=== PATIENT | female | born 1975 | race Caucasian/White ===

== ENCOUNTER 2020-01-09 21:14 | Observation (INO) | payer OTHER ==
--- NOTE | 2020-01-09 21:48 | ER Document Report ---
ED Medical Screen (RME) - General Chief Complaint: Chest Pain Stated Complaint: CHEST PAINS SOB Time Seen by Provider: 01/09/20 21:23 Mode of Arrival: Ambulatory Information source: Patient Notes: 44-year-old female presented to ED for complaint of chest pain with difficulty breathing worse today. She states she has been sick for about 2 years. She states her red cells and her white cells were very high her platelets were also high she has been going to a doctor and having multiple test in [place] for over a year. He states they are concerned she has autoimmune disease and she was supposed to go to the [facility] before she had a family emergency and ended up coming to [place] about a month ago. She states she is planning to go back on the to [place]. She states she does have a history of kidney stones with hydronephrosis pain management for body pains and muscle spasms she is on Dilaudid 4 mg every 6 hours took the last one about 9 PM fentanyl patches 37.5 mcg changes every 3 days. She states she is got chronic bone and muscle pain. She is also very history of high blood pressure. She has a port due to her multiple illnesses and chronic pain and the possible autoimmune disease. She states she does self care for her port while she is in [place]. She states her home health nurse taught her how to do the home care and taught her how to do the Cathflo treatment for Friday film goes over the end of her Port-A-Cath. She states she did that treatment last week she has a history of migraines but has not had one since I gave her Botox treatments. She states she is a former smoker does not drink or do any drugs. I have greeted and performed a rapid initial assessment of this patient. A comprehensive ED assessment and evaluation of the patient, analysis of test results and completion of medical decision making process will be conducted by an additional ED providers. Physical Exam - Vital signs Vitals: Temp Pulse Resp BP Pulse Ox 98 F 93 16 112/82 99 01/09/20 21:29 01/09/20 21:29 01/09/20 21:29 01/09/20 21:01/09/20 21:29 Course - Vital Signs Vital signs: Temp Pulse Resp BP Pulse Ox 98 F 93 16 112/82 99 01/09/20 21:29 01/09/20 21:29 01/09/20 21:29 01/09/20 21:29 01/09/20 21:29
--- NOTE | 2020-01-09 22:40 | RADIOLOGY REPORT (SQ) ---
EXAM DESCRIPTION: XR CHEST 2 VIEWS COMPLETED DATE/TME: 01/09/2020 21:39 CLINICAL HISTORY: 44 years, Female, chest pain, short of breath COMPARISON: None. NUMBER OF VIEWS: TECHNIQUE: LIMITATIONS: None. FINDINGS: No evidence of pulmonary infiltrate or pleural effusion. The heart and mediastinum are unremarkable. Pulmonary vascularity appears normal. There is a left-sided Port-A-Cath with its tip in the superior vena cava. IMPRESSION: No acute finding. copyright 2010 [employer]- All Rights Reserved
[2020-01-09 23:21] LABS: APPEARANCE,URINE CLEAR; BILIRUBIN,URINE NEGATIVE (NEGATIVE); COLOR,URINE ORANGE; GLUCOSE, URINE NEGATIVE (NEGATIVE); KETONES,URINE NEGATIVE (NEGATIVE); LEUKOCYTE ESTERASE,URINE NEGATIVE (NEGATIVE); NITRITE,URINE POSITIVE (NEGATIVE); PROTEIN,URINE NEGATIVE (NEGATIVE); URINE SPECIFIC GRAVITY 1.021
--- NOTE | 2020-01-09 23:25 | RADIOLOGY REPORT (SQ) ---
EXAM DESCRIPTION: Site: RP: CT ABDOMEN PELVIS WITHOUT IV CONTRAST CLINICAL HISTORY: 44 years Female; Hematuria, flank pain, history of kidney stones; TECHNIQUE: CT of the abdomen and pelvis without contrast. All CT scans at this facility use dose modulation, iterative reconstruction, and/or weight based dosing when appropriate to reduce radiation dose to as low as reasonably achievable. COMPARISON: None. FINDINGS: Abdomen: Stomach: No significant distention or surrounding edema. Liver:No focal lesions. No intrahepatic ductal distention. Gallbladder: Surgically absent Pancreas:Within normal limits Spleen:Within normal limits Right kidney: 3 mm lower pole calculus. No hydronephrosis. No ureteral calculi. Left kidney: 3 mm lower pole calculus. No hydronephrosis. No ureteral calculi. Adrenal glands:Within normal limits Vascular structures:No aortic aneurysm. Pelvis: Small bowel:No significant distention. Appendix: Not reliably identified. No regional edema. Colon:No distention or acute pericolonic edema. No free intraperitoneal fluid or air. Bones: No acute bone findings. Bladder: Unremarkable. No pelvic mass or adenopathy. Note that evaluation of the bowel and solid organs is somewhat limited due to lack of intravenous and oral contrast. IMPRESSION: 1. Bilateral renal calculi. 2. No hydronephrosis or ureteral calculi. 3. Previous cholecystectomy.
--- NOTE | 2020-01-10 00:16 | EKG REPORT ---
SEVERITY:- ABNORMAL ECG - SINUS RHYTHM FIRST DEGREE AV BLOCK : Confirmed by: Carlos Alberto Melissa MD 10-Jan-2020 00:15:43
[2020-01-10 01:49] LABS: ABSOLUTE BASOPHILS # (AUTO) 0.1 10^3/uL (0.0-0.2); ABSOLUTE EOSINOPHILS # (AUTO) 0.3 10^3/uL (0.0-0.6); ABSOLUTE LYMPHOCYTES (AUTO) 3.9 10^3/uL (0.5-4.7); ABSOLUTE MONOCYTES (AUTO) 0.4 10^3/uL (0.1-1.4); ABSOLUTE NEUT (AUTO) 3.1 10^3/uL (1.7-8.2); BASOPHILS % (AUTO) 1.1 % (0-2); EOSINOPHILS % (AUTO) 3.6 % (0-6); HEMATOCRIT 39.6 % (36.0-47.0); HEMOGLOBIN 13.6 g/dL (12.0-15.5); LYMPHOCYTES % (AUTO) 50.2 % (13-45); MEAN CORPUSCULAR HEMOGLOBIN 27.7 pg (27.0-33.4); MEAN CORPUSCULAR HGB CONC 34.3 g/dL (32.0-36.0); MEAN CORPUSCULAR VOLUME 81 fl (80-97); MONOCYTES % (AUTO) 5.2 % (3-13); PLATELET COUNT 357 10^3/uL (150-450); RED BLOOD COUNT 4.89 10^6/uL (3.72-5.28); RED CELL DISTRIBUTION WIDTH 13.1 % (11.5-14.0); SEGMENTED NEUTROPHILS % (AUTO) 39.9 % (42-78); TOTAL CELLS COUNTED % (AUTO) 100 %; WHITE BLOOD COUNT 7.7 10^3/uL (4.0-10.5)
[2020-01-10 02:03] LABS: ALKALINE PHOSPHATASE 75 U/L (38-126); ANION GAP 8 (5-19); ASPARTATE AMINO TRANSFERASE 26 U/L (14-36); BILIRUBIN,DIRECT 0.3 mg/dL (0.0-0.4); BILIRUBIN,TOTAL 0.5 mg/dL (0.2-1.3); BLOOD UREA NITROGEN 15 mg/dL (7-20); CALCIUM 9.7 mg/dL (8.4-10.2); CARBON DIOXIDE 28 mmol/L (22-30); CHLORIDE 101 mmol/L (98-107); GLUCOSE 159 mg/dL (75-110); PHOSPHORUS 4.3 mg/dL (2.5-4.5); POTASSIUM 3.8 mmol/L (3.6-5.0); TOTAL PROTEIN 6.6 g/dL (6.3-8.2)
[2020-01-10 02:14] LABS: NT PRO BNP 365 pg/mL (<125)
[2020-01-10 02:15] LABS: TROPONIN I < 0.012 ng/mL
[2020-01-10 02:17] LABS: PROTHROMBIN TIME 13.4 SEC (11.4-15.4)
[2020-01-10 02:18] LABS: PARTIAL THROMBOPLASTIN TIME 36.3 SEC (23.5-35.8)
--- NOTE | 2020-01-10 03:50 | RADIOLOGY REPORT (SQ) ---
COMPLETED DATE/TME: 01/10/2020 03:00 EXAM: CT chest angiogram with contrast. INDICATION: Chest pain. TECHNIQUE: Contiguous axial CT images of the chest. Intravenous contrast: Present. Protocol: Pulmonary embolus (PE) protocol angiogram. Reformats: MIPs and MPRs created and utilized. DLP 1021 mGy-cm. This exam was performed according to our departmental dose-optimization program, which includes automated exposure control, adjustment of the mA and/or kV according to patient size and/or use of iterative reconstruction technique. Note: LV=left ventricle. RV=right ventricle. COMPARISON: None. FINDINGS: Upper abdomen: Partially imaged. Cholecystectomy Thoracic aorta: Unremarkable. Heart: No right atrial thrombus. RV/LV ratio: Within normal limits. Pulmonary arteries: Suboptimal opacification of the pulmonary arteries. No large central pulmonary embolism detected. Mediastinum: No pathologic sized middle mediastinal lymphadenopathy. Tracheobronchial tree: Unremarkable. Lungs: Lobar consolidation: Negative. Pleural effusion: Negative. Pneumothorax: Negative. Other: Negative. Bones: Unremarkable. IMPRESSION: No large central pulmonary embolism detected. No acute cardiopulmonary abnormality.
--- NOTE | 2020-01-10 05:23 | ER Document Report ---
ED General - General Chief Complaint: Chest Pain Stated Complaint: CHEST PAINS SHORTNESS OF BREATH Time Seen by Provider: 01/09/20 21:23 Mode of Arrival: Ambulatory Notes: 44-year-old female with left chest PowerPort because of chronic decreased p.o. intake patient reports, possible autoimmune disease and hematologic issues that are currently being investigated by multiple specialists presents with shortness of breath and chest pain. Says she had episode several hours prior to arrival during which she had inability to get sufficient air and gasping for breath which was resolved when she presented to ED. Patient denies any prior episodes, exertional chest pain, pleuritic chest pain, PE risk factors, neck pain, trauma, syncope, cough, fever, prior episodes - Related Data Allergies/Adverse Reactions: NSAIDS (Non-Steroidal Anti-Inflamma Allergy (Verified 01/09/20 22:28) tramadol [From Ultram] Allergy (Verified 01/09/20 22:28) Home Medications: flomax, keflex, pyridium, dilaudid, fentanyl patch, baby asa, baclofen,amanatine, restles leg, med, dronabinol,hydrozine, zofranmenatidine,lisinopril/HCTZ,vitamin d, Past Medical History - General Information source: Patient - Social History Smoking Status: Former Smoker Family History: Reviewed & Not Pertinent Renal/ Medical History: Reports: Hx Kidney Stones Review of Systems - Review of Systems Notes: REVIEW OF SYSTEMS: CONSTITUTIONAL : Denies fever, chills, or sweats. EENT: Denies recent cold/sinus symptoms, denies throat pain CARDIOVASCULAR: + chest pain, -ANNETTA RESPIRATORY: Denies cough, +shortness of breath. GASTROINTESTINAL: Denies abdominal pain, nausea/vomiting. GENITOURINARY: Denies difficulty urinating, +painful urination. FEMALE GENITOURINARY: Denies abnormal vaginal bleeding, vaginal discharge. MUSCULOSKELETAL: Denies neck pain, back pain. SKIN: Denies rash or skin lesions. HEMATOLOGIC : Denies easy bruising or bleeding. LYMPHATIC: Denies swollen, enlarged glands. NEUROLOGICAL: Denies headache, denies change in gait. PSYCHIATRIC: Denies anxiety or stress or depression. Physical Exam - Vital signs Vitals: Temp Pulse Resp BP Pulse Ox 98 F 93 16 112/82 99 01/09/20 21:29 01/09/20 21:29 01/09/20 21:29 01/09/20 21:29 01/09/20 21:29 - Notes Notes: PHYSICAL EXAMINATION: GENERAL: Well-appearing, well-nourished and in no acute distress. HEAD: Atraumatic, normocephalic. EYES: Pupils equal round and appropriate constriction, sclera anicteric, conjunctiva are normal. ENT: nares patent, moist mucous membranes. NECK: Normal range of motion, supple without lymphadenopathy LUNGS: Breath sounds clear to auscultation bilaterally and equal. No wheezes rales or rhonchi. HEART/CHEST: Regular rate and rhythm without murmurs, left chest port nontender ABDOMEN: Soft, nontender, no guarding, no masses, no CVAT EXTREMITIES: Normal range of motion, no pitting or edema. No cyanosis. NEUROLOGICAL: Awake, alert, conversing appropriately, moves all extremities spontaneously. PSYCH: Normal mood, normal affect. SKIN: Warm, Dry, normal turgor, no rashes or lesions noted. Course - Re-evaluation Re-evalutation: 01/10/20 07:39 Story atypical for ACS and patient's heart score was 1, obtain EKG and troponin to rule out ACS. Patient is PERC negative, initially ruled out clinically but patient had episode of shortness of breath in the ED where she became hypoxic to mid 80s so I obtained CTA. During episode of hypoxia patient was not having labored breathing, had clear lungs, and possibly appeared to be holding her breath. I obtained a repeat EKG which was unchanged and episode resolved without complication. Given this episode I presented patient to hospitalist who accepted patient to observation so we can further evaluate patient during one of his episodes and make sure respiratory status is stable for discharge. - Vital Signs Vital signs: Temp Pulse Resp BP Pulse Ox 98 F 93 16 125/81 94 01/09/20 21:29 01/09/20 21:29 01/10/20 02:02 01/10/20 02:02 01/10/20 02:02 - Laboratory Result Diagrams: 01/10/20 01:30 01/10/20 01:30 Laboratory results interpreted by me: 01/09/20 01/10/20 01/10/20 20:40 01:30 01:30 Lymph % (Auto) 50.2 H Seg Neutrophils % 39.9 L APTT Glucose 159 H NT-Pro-B Natriuret Pep Urine Nitrite POSITIVE H Urine Urobilinogen 4.0 H 01/10/20 01/10/20 01:30 01:30 Lymph % (Auto) Seg Neutrophils % APTT 36.3 H Glucose NT-Pro-B Natriuret Pep 365 H Urine Nitrite Urine Urobilinogen - EKG Interpretation by Me Additional EKG results interpreted by me: 01/10/20 07:42 Heart rate 76, sinus rhythm, first-degree AV block, no significant ST elevations or depressions, no significant T wave abnormalities Repeat EKG: Sinus rhythm, no significant ST elevations or depressions, no significant change from initial EKG Discharge - Discharge Clinical Impression: Hypoxia Disposition: ADMITTED OBSERVATION Admitting Provider: [facility] Admitted: Telemetry
[2020-01-10] MEDS ORDERED: HYDROMORPHONE HCL INJ/PF 2 MG/ML AMPULE IV PRN (05:30)
[2020-01-10] MEDS ORDERED: BACLOFEN 10 MG TABLET PO SCH (06:00)
--- NOTE | 2020-01-10 06:04 | PDOC H&P ---
History of Present Illness Admission Date/PCP: 01/10/2020 Patient complains of: Shortness of breath. Chest discomfort History of Present Illness: JELANI CHILEL is a 44 year old female with morbid obesity, HOLLIE/OHS, and an unspecified autoimmune condition for which she is undergoing work-up in [place] now presents to the ER after having a sudden onset shortness of breath and a squeezing type chest pain which was retrosternal, 8 out of 10 in intensity, nonradiating, nonexertional with no clear aggravating or relieving factor. She states that she has been having a decline in her functional status and was feeling more and more short of breath over the past 1 year. She denies any cough, fever, chills, nausea, vomiting or any recent contact with sick patient. During evaluation at ER patient was seen having oxygen saturation of low to mid 80s and due to her concern for possible laryngeal spasm as a cause of intermittent shortness of breath and desaturation decision was made to admit her for close observation. Patient denies any difficulty of swallowing and has not taken any medication out of her usual. Patient has IV port on her left chest which she states was placed difficulty of gating access for IV hydration at home. Social History Information Source: Patient Lives with: Family Smoking Status: Former Smoker Electronic Cigarette use?: No Frequency of Alcohol Use: None Hx Recreational Drug Use: No Drugs: None - Advance Directive Resuscitation Status: Full Code Family History Parental Family History Reviewed: Yes Children Family History Reviewed: Yes Sibling(s) Family History Reviewed.: Yes Medication/Allergy Allergies/Adverse Reactions: NSAIDS (Non-Steroidal Anti-Inflamma Allergy (Verified 01/09/20 22:28) tramadol [From Ultram] Allergy (Verified 01/09/20 22:28) Review of Systems Constitutional: PRESENT: anorexia, fatigue, weakness Eyes: PRESENT: visual disturbances Ears: ABSENT: hearing changes Nose, Mouth, and Throat: ABSENT: as per HPI, headache(s), mouth pain, sore throat, other Cardiovascular: PRESENT: as per HPI Respiratory: PRESENT: as per HPI Gastrointestinal: ABSENT: abdominal pain, constipation, diarrhea, hematemesis, hematochezia, nausea, vomiting Genitourinary: ABSENT: dysuria, hematuria Musculoskeletal: ABSENT: joint swelling Integumentary: ABSENT: rash, wounds Neurological: ABSENT: abnormal gait, abnormal speech, confusion, dizziness, focal weakness, syncope Endocrine: ABSENT: cold intolerance, heat intolerance, polydipsia, polyuria Hematologic/Lymphatic: ABSENT: easy bleeding, easy bruising Physical Exam Vital Signs: Temp Pulse Resp BP Pulse Ox 98 F 93 16 125/81 94 01/09/20 21:29 01/09/20 21:29 01/10/20 02:02 01/10/20 02:02 01/10/20 02:02 Intake & Output 01/08/20 01/09/20 01/10/20 06:59 06:59 06:59 Weight 117.2 kg Additional comments: GENERAL APPEARANCE: Obese, comfortably lying on bed, not in acute distress HEENT: Normocephalic and atraumatic. No scleral icterus. PERRLA, EOMs are full, oral mucosa NECK: Supple. No lymphadenopathy or tenderness. No carotid bruit. No JVD CHEST: Symmetric. Has reproducible pain on the left chest, there is IV port on the left upper chest. LUNGS: Breath sounds are equal and clear bilaterally. No wheezes, rhonchi, or rales. HEART: Regular rate and rhythm with normal S1 and S2. No murmurs, gallops, or rubs. ABDOMEN: Soft, normoactive bowel sound, no tenderness, guarding, or rigidity. No organomegaly or hernia. No CVA tenderness EXTREMITIES: No cyanosis, clubbing, or edema. MUSCULOSKELETAL: No deformity, atrophy or swelling noted PSYCHIATRIC: The patient is awake, alert, and oriented x3. Recent and remote memory is intact. Appears anxious SKIN: Warm, dry, and well perfused. No lesions or rashes are noted. NEUROLOGIC: No focal sensory or motor deficits are noted. Results Laboratory Results: 01/10/20 01:30 01/10/20 01:30 01/09/20 01/10/20 01/10/20 20:40 01:30 01:30 WBC 7.7 RBC 4.89 Hgb 13.6 Hct 39.6 MCV 81 MCH 27.7 MCHC 34.3 RDW 13.1 Plt Count 357 Seg Neutrophils % 39.9 L Sodium 137.0 Potassium 3.8 Chloride 101 Carbon Dioxide 28 Anion Gap 8 BUN 15 Creatinine 0.84 Est GFR ( Amer) > 60 Glucose 159 H Calcium 9.7 Phosphorus 4.3 Magnesium 2.1 Total Bilirubin 0.5 AST 26 Alkaline Phosphatase 75 Total Protein 6.6 Albumin 4.0 Lipase 106.5 Serum HCG, Qual Urine Color ORANGE Urine Appearance CLEAR Urine pH 5.0 Ur Specific [place] 1.021 Urine Protein NEGATIVE Urine Glucose (UA) NEGATIVE Urine Ketones NEGATIVE Urine Blood NEGATIVE Urine Nitrite POSITIVE H Ur Leukocyte Esterase NEGATIVE Urine WBC (Auto) 0 Urine RBC (Auto) 0 01/10/20 01:30 WBC RBC Hgb Hct MCV MCH MCHC RDW Plt Count Seg Neutrophils % Sodium Potassium Chloride Carbon Dioxide Anion Gap BUN Creatinine Est GFR ( Amer) Glucose Calcium Phosphorus Magnesium Total Bilirubin AST Alkaline Phosphatase Total Protein Albumin Lipase Serum HCG, Qual NEGATIVE Urine Color Urine Appearance Urine pH Ur Specific [place] Urine Protein Urine Glucose (UA) Urine Ketones Urine Blood Urine Nitrite Ur Leukocyte Esterase Urine WBC (Auto) Urine RBC (Auto) 01/10/20 01/10/20 01:30 03:35 Troponin I < 0.012 < 0.012 NT-Pro-B Natriuret Pep 365 H Impressions: Chest X-Ray 01/09/20 21:39 IMPRESSION: No acute finding. copyright 2011 [employer]- All Rights Reserved Abdomen/Pelvis CT 01/09/20 21:44 IMPRESSION: 1. Bilateral renal calculi. 2. No hydronephrosis or ureteral calculi. 3. Previous cholecystectomy. Chest/Abdomen CTA 01/10/20 03:00 IMPRESSION: No large central pulmonary embolism detected. No acute cardiopulmonary abnormality. Assessment and Plan - Diagnosis (1) Hypoxia Is this a current diagnosis for this admission?: Yes Plan: Patient presents with acute onset shortness of breath Has good air entry bilaterally and has no wheezing or crackles, no stridor heard She was noted to have oxygen saturation of low 80s multiple times in the ER Chest x-ray showed no acute finding D-dimer was normal, CTA chest was also done which showed no central pulmonary embolus EKG showed normal sinus rhythm cardiac enzymes were negative Hypoxia could be partly due to obesity hypoventilation syndrome Due to her concern for possible laryngeal spasm patient will be admitted for close observation and continuous oxygen saturation monitoring (2) Obstructive sleep apnea Is this a current diagnosis for this admission?: Yes Plan: Continue using CPAP while inpatient (3) Chest pain Qualifiers: Chest pain type: unspecified Qualified Code(s): R07.9 - Chest pain, unspecified Is this a current diagnosis for this admission?: Yes Plan: Patient has reproducible chest pain Likely musculoskeletal 2 sets of cardiac enzymes are negative and EKG showed ST-T wave changes consistent with ischemia Will trend cardiac enzymes one more time Telemetry monitoring Patient allergic to NSAIDs (4) Bilateral kidney stones Is this a current diagnosis for this admission?: Yes Plan: CT of abdomen shows bilateral renal calculi with no hydronephrosis, no ureteral calculi Advised her to hydrate herself adequately (5) Morbid obesity with BMI of 40.0-44.9, adult Is this a current diagnosis for this admission?: Yes Plan: Encourage lifestyle modification measures including dietary changes and regular exercise - Time Time Spent with patient: 35 or more minutes Total Critical Time (Minutes): 35 Medications reviewed and adjusted accordingly: Yes Anticipated Discharge Disposition: Home, Self Care Anticipated Discharge Timeframe: within 48 hours - Inpatient Certification Based on my medical assessment, after consideration of the patient's comorbidit ies, presenting symptoms, or acuity I expect that the services needed warrant INPATIENT care.: Yes I certify that my determination is in accordance with my understanding of Me nereyda's requirements for reasonable and necessary INPATIENT services [42 CFR 412.3e].: Yes Medical Necessity: Need Close Monitoring Due to Risk of Patient Decompensation, Need For Continuous Telemetry Monitoring Post Hospital Care: D/C or Transfer Summary
--- NOTE | 2020-01-10 07:14 | EKG REPORT ---
SEVERITY:- BORDERLINE ECG - SINUS RHYTHM BORDERLINE PROLONGED QT INTERVAL IVCD : Confirmed by: Hever Hussein MD 10-Jan-2020 07:13:23
[2020-01-10] MEDS ORDERED: ENOXAPARIN SODIUM INJ 40 MG/0.4 ML DISP.SYRIN SUBCUT SCH (10:00)
[2020-01-10 10:20] VITALS: BP 119/76
[2020-01-10 12:00] LABS: ARTERIAL BLOOD BASE EXCESS 2.4 mmol/L; ARTERIAL BLOOD H2CO3 1.35 mmol/L (1.05-1.35); ARTERIAL BLOOD HCO3 27.6 mmol/L (20-24); ARTERIAL BLOOD O2 SATURATION 96.2 % (94-98); ARTERIAL BLOOD PCO2 44.9 mmHg (35-45); ARTERIAL BLOOD PH 7.41 (7.35-7.45); ARTERIAL BLOOD PO2 83.1 mmHg (80-100)
[2020-01-10 12:04] LABS: ARTERIAL BLOOD FIO2 ROOM AIR
--- NOTE | 2020-01-10 18:00 | PDOC DISCHARGE SUMMARY ---
Impression - Admit/DC Date/PCP Admission Date/Primary Care Provider: 01/10/20 05:26 Discharge Date: 01/10/20 - Discharge Diagnosis (1) Atypical chest pain Is this a current diagnosis for this admission?: Yes (2) Dyspnea Is this a current diagnosis for this admission?: Yes (3) Bilateral kidney stones Is this a current diagnosis for this admission?: Yes (4) Morbid obesity with BMI of 40.0-44.9, adult Is this a current diagnosis for this admission?: Yes (5) Obstructive sleep apnea Is this a current diagnosis for this admission?: Yes - Additional Information Resuscitation Status: Full Code Discharge Diet: Regular Discharge Activity: Activity As Tolerated, Balance Activity w/Rest Home Medications: Baclofen [Baclofen 20 mg Tablet] 20 mg PO Q8 01/10/20 Cephalexin Monohydrate [Keflex 500 mg Capsule] 500 mg PO Q12 01/10/20 Chlorthalidone [Hygroton 25 mg Tablet] 25 mg PO DAILYP PRN 01/10/20 Cholecalciferol (Vitamin D3) [Vitamin D3 1000 Unit Tablet] 5,000 unit PO DAILY 01/10/20 Dronabinol 5 mg PO BID 01/10/20 Fentanyl 37.5 mcg TD Q3D 01/10/20 Hydromorphone HCl [Dilaudid] 4 mg PO Q4HP PRN MDD 5 01/10/20 Hydroxyzine HCl [Atarax 10 mg Tablet] 20 mg PO Q8HP PRN 01/10/20 Lisinopril/Hydrochlorothiazide [Lisinopril-Hctz 20-12.5 mg Tab] 1 each PO DAILY 01/10/20 Memantine HCl 10 mg PO Q12 01/10/20 Ondansetron [Zofran Odt 4 mg Tablet] 8 mg PO DAILYP PRN 01/10/20 Phenazopyridine HCl [Pyridium 200 mg Tablet] 200 mg PO TIDP PRN 01/10/20 Ropinirole HCl [Requip] 0.5 mg PO QHS 01/10/20 Tamsulosin HCl [Flomax 0.4 mg Cap.sr] 0.4 mg PO DAILY 01/10/20 History of Present Illiness History of Present Illness: Per H&P by Dr. Calixto: MO CHILEL is a 44 year old female with morbid obesity, HOLLIE/OHS, and an unspecified autoimmune condition for which she is undergoing work-up in [place] now presents to the ER after having a sudden onset shortness of breath and a squeezing type chest pain which was retrosternal, 8 out of 10 in intensity, nonradiating, nonexertional with no clear aggravating or relieving factor. She states that she has been having a decline in her functi onal status and was feeling more and more short of breath over the past 1 year. She denies any cough, fever, chills, nausea, vomiting or any recent contact with sick patient. During evaluation at ER patient was seen having oxygen saturation of low to mid 80s and due to her concern for possible laryngeal spasm as a cause of intermittent shortness of breath and desaturation decision was made to admit her for close observation. Patient denies any difficulty of swallowing and has not taken any medication out of her usual. Patient has IV port on her left chest which she states was placed difficulty of gating access for IV hydration at home. Hospital Course Hospital Course: The patient was admitted to the medical floor on continuous cardiac telemetry and pulse oximetry. She was evaluated for her chest discomfort with continuous telemetry; no abnormal rhythms noted. Serial EKGs were unremarkable. Troponins negative x3; proBNP 365, TSH 3.04. ABG unremarkable D-dimer is 0.42. CTA chest was negative for acute findings. Abdomen/pelvic CT revealed bilateral renal calculi; no hydronephrosis, previous cholecystectomy. No acute findings. She was monitored for desaturation events with continuous pulse oximetry; none occurred while on continuous pulse ox. She also maintain oxygen saturations greater than 97% well on 6-minute walk. At time of my assessment, patient denies patient. States that discomfort remains; described as "unable to get a satisfying gulp of good air." She was noted to be speaking full sentences, maintaining SpO2 of 98% on RA, with a respiratory rate of 18. Patient denied, specifically, (in layman's terms)about shortness of breath, LUND, orthopnea, cough, and pleuritic pain and stated that there was no other way to describe her discomfort. The patient has had an extensive work-up that was, reassuringly, normal. Patient was discharged home in stable condition. She was advised to follow-up with her primary care provider at the earliest available appointment; [place]. She is instructed to take her medications as prescribed. She was advised to avoid known respiratory triggers. She was instructed to return to the emergency department, as needed, for concerning symptoms. Of concern, ER nurse notes indicate that upon the patient's arrival, the patient's port had already been accessed by the patient while at home. At discharge, the patient declined to sign her discharge paperwork and proceeded to the hospital exit with her port still accessed. Fortunately, nursing was able to intervene and deaccess her port prior to her leaving the building. Should the patient return with a febrile illness or leukocytosis, it would be prudent to obtain blood cultures. Unfortunately, this trend was not identified prior to the patient's discharge and so blood cultures were not obtained this visit. Physical Exam Vital Signs: Temp Pulse Resp BP Pulse Ox 98.2 F 80 17 119/76 99 01/10/20 16:38 01/10/20 16:38 01/10/20 16:38 01/10/20 16:38 01/10/20 16:38 Pulse Oximeter Continuous Start: 01/10/20 05:29 Freq: RTQ4 Status: Complete Protocol: Document 01/10/20 16:00 [facility] (Rec: 01/10/20 16:38 [facility] [id number]) Pulse Oximetry Assessment Oxygen Saturation (92-100) 99 Oxygen Delivery Method Room Air Fraction of Inspired Oxygen (FIO2) 21 Equipment Usage Equipment in Use Continuous SpO2 Machine # 6 Intake & Output 01/09/20 01/10/20 01/11/20 06:59 06:59 06:59 Intake Total 450 Balance 450 Weight 117.2 kg 117.2 kg General appearance: PRESENT: no acute distress, morbidly obese, well-developed, well-nourished Head exam: PRESENT: atraumatic, normocephalic Eye exam: PRESENT: conjunctiva pink, EOMI, PERRLA. ABSENT: scleral icterus Mouth exam: PRESENT: moist, tongue midline Respiratory exam: PRESENT: clear to auscultation satya, symmetrical, unlabored. ABSENT: rales, rhonchi, wheezes Cardiovascular exam: PRESENT: RRR. ABSENT: diastolic murmur, rubs, systolic murmur Vascular exam: PRESENT: normal capillary refill Extremities exam: PRESENT: full ROM. ABSENT: calf tenderness, clubbing, pedal edema Musculoskeletal exam: PRESENT: ambulatory Neurological exam: PRESENT: alert, awake, oriented to person, oriented to place, oriented to time, oriented to situation, CN II-XII grossly intact. ABSENT: motor sensory deficit Psychiatric exam: PRESENT: appropriate affect, normal mood. ABSENT: homicidal ideation, suicidal ideation Skin exam: PRESENT: dry, intact, warm. ABSENT: cyanosis, rash Results Laboratory Results: WBC 7.7 10^3/uL (4.0-10.5) 01/10/20 01:30 RBC 4.89 10^6/uL (3.72-5.28) 01/10/20 01:30 Hgb 13.6 g/dL (12.0-15.5) 01/10/20 01:30 Hct 39.6 % (36.0-47.0) 01/10/20 01:30 MCV 81 fl (80-97) 01/10/20 01:30 MCH 27.7 pg (27.0-33.4) 01/10/20 01:30 MCHC 34.3 g/dL (32.0-36.0) 01/10/20 01:30 RDW 13.1 % (11.5-14.0) 01/10/20 01:30 Plt Count 357 10^3/uL (150-450) 01/10/20 01:30 Lymph % (Auto) 50.2 % (13-45) H 01/10/20 01:30 Weber % (Auto) 5.2 % (3-13) 01/10/20 01:30 Eos % (Auto) 3.6 % (0-6) 01/10/20 01:30 Baso % (Auto) 1.1 % (0-2) 01/10/20 01:30 Absolute Neuts (auto) 3.1 10^3/uL (1.7-8.2) 01/10/20 01:30 Absolute Lymphs (auto) 3.9 10^3/uL (0.5-4.7) 01/10/20 01:30 Absolute Monos (auto) 0.4 10^3/uL (0.1-1.4) 01/10/20 01:30 Absolute Eos (auto) 0.3 10^3/uL (0.0-0.6) 01/10/20 01:30 Absolute Basos (auto) 0.1 10^3/uL (0.0-0.2) 01/10/20 01:30 Seg Neutrophils % 39.9 % (42-78) L 01/10/20 01:30 PT 13.4 SEC (11.4-15.4) 01/10/20 01:30 INR 1.00 01/10/20 01:30 APTT 36.3 SEC (23.5-35.8) H 01/10/20 01:30 D-Dimer 0.42 ug/mL (0.00-0.50) 01/10/20 01:30 Carbonic Acid 1.35 mmol/L (1.05-1.35) 01/10/20 11:40 HCO3/H2CO3 Ratio 20:1 01/10/20 11:40 ABG pH 7.41 (7.35-7.45) 01/10/20 11:40 ABG pCO2 44.9 mmHg (35-45) 01/10/20 11:40 ABG pO2 83.1 mmHg (80-100) 01/10/20 11:40 ABG HCO3 27.6 mmol/L (20-24) H 01/10/20 11:40 ABG Total CO2 29.0 mmol/L (21-25) H 01/10/20 11:40 ABG O2 Saturation 96.2 % (94-98) 01/10/20 11:40 ABG Base Excess 2.4 mmol/L 01/10/20 11:40 FiO2 ROOM AIR 01/10/20 11:40 Sodium 137.0 mmol/L (137-145) 01/10/20 01:30 Potassium 3.8 mmol/L (3.6-5.0) 01/10/20 01:30 Chloride 101 mmol/L (98-107) 01/10/20 01:30 Carbon Dioxide 28 mmol/L (22-30) 01/10/20 01:30 Anion Gap 8 (5-19) 01/10/20 01:30 BUN 15 mg/dL (7-20) 01/10/20 01:30 Creatinine 0.84 mg/dL (0.52-1.25) 01/10/20 01:30 Est GFR ( Amer) > 60 (>60) 01/10/20 01:30 Est GFR (MDRD) Non-Af > 60 (>60) 01/10/20 01:30 Glucose 159 mg/dL (75-110) H 01/10/20 01:30 Calcium 9.7 mg/dL (8.4-10.2) 01/10/20 01:30 Phosphorus 4.3 mg/dL (2.5-4.5) 01/10/20 01: Magnesium 2.1 mg/dL (1.6-2.3) 01/10/20 01:30 Total Bilirubin 0.5 mg/dL (0.2-1.3) 01/10/20 01:30 Direct Bilirubin 0.3 mg/dL (0.0-0.4) 01/10/20 01:30 Neonat Total Bilirubin Not Reportable 01/10/20 01:30 Neonat Direct Bilirubin Not Reportable 01/10/20 01:30 Neonat Indirect Bili Not Reportable 01/10/20 01:30 AST 26 U/L (14-36) 01/10/20 01:30 ALT 22 U/L (<35) 01/10/20 01:30 Alkaline Phosphatase 75 U/L (38-126) 01/10/20 01:30 Troponin I < 0.012 ng/mL 01/10/20 10:45 NT-Pro-B Natriuret Pep 365 pg/mL (<125) H 01/10/20 01:30 Total Protein 6.6 g/dL (6.3-8.2) 01/10/20 01:30 Albumin 4.0 g/dL (3.5-5.0) 01/10/20 01:30 Lipase 106.5 U/L (23-300) 01/10/20 01:30 TSH 3.04 uIU/mL (0.47-4.68) 01/10/20 01:30 Serum HCG, Qual NEGATIVE (NEGATIVE) 01/10/20 01:30 Urine Color ORANGE 01/09/20 20:40 Urine Appearance CLEAR 01/09/20 20:40 Urine pH 5.0 (5.0-9.0) 01/09/20 20:40 Ur Specific [place] 1.021 01/09/20 20:40 Urine Protein NEGATIVE mg/dL (NEGATIVE) 01/09/20 20:40 Urine Glucose (UA) NEGATIVE mg/dL (NEGATIVE) 01/09/20 20:40 Urine Ketones NEGATIVE mg/dL (NEGATIVE) 01/09/20 20:40 Urine Blood NEGATIVE (NEGATIVE) 01/09/20 20:40 Urine Nitrite POSITIVE (NEGATIVE) H 01/09/20 20:40 Urine Bilirubin NEGATIVE (NEGATIVE) 01/09/20 20:40 Urine Urobilinogen 4.0 mg/dL (<2.0) H 01/09/20 20:40 Ur Leukocyte Esterase NEGATIVE (NEGATIVE) 01/09/20 20:40 Urine WBC (Auto) 0 /HPF 01/09/20 20:40 Urine RBC (Auto) 0 /HPF 01/09/20 20:40 U Hyaline Cast (Auto) 5 /LPF 01/09/20 20:40 Squamous Epi Cells Auto 1 /HPF 01/09/20 20:40 Urine Mucus (Auto) RARE /LPF 01/09/20 20:40 Urine Ascorbic Acid NEGATIVE (NEGATIVE) 01/09/20 20:40 01/10/20 01/10/20 01/10/20 01:30 03:35 10:45 Troponin I < 0.012 < 0.012 < 0.012 NT-Pro-B Natriuret Pep 365 H Impressions: Chest X-Ray 01/09/20 21:39 IMPRESSION: No acute finding. copyright 2011 [employer]- All Rights Reserved Abdomen/Pelvis CT 01/09/20 21:44 IMPRESSION: 1. Bilateral renal calculi. 2. No hydronephrosis or ureteral calculi. 3. Previous cholecystectomy. Chest/Abdomen CTA 01/10/20 03:00 IMPRESSION: No large central pulmonary embolism detected. No acute cardiopulmonary abnormality. Plan Plan of Treatment: Patient is discharged home in stable condition. She is instructed to follow-up with her primary care provider at the earliest available appointment; [place] She is advised to take her medications as prescribed. Avoid known respiratory triggers. Return to the emergency department, as needed, for concerning symptoms. Time Spent: Greater than 30 Minutes Stroke Is this a Stroke Patient?: No Acute Heart Failure Is this a Heart Failure Patient?: No
== END 2020-01-10 17:30 | disposition home or self-care (01) ==
LOC: ER 21:14 → EH 01-10 05:26 → 4S 01-10 09:20
PROVIDERS: ADMIT Student in an Organized Health Care Education/Training Program; ATTEND Registered Nurse
DX: R07.89 Other chest pain (principal); R06.00 Dyspnea, unspecified; N20.0 Calculus of kidney; E66.01 Morbid (severe) obesity due to excess calories; Z68.41 Body mass index [BMI] 40.0-44.9, adult; G47.33 Obstructive sleep apnea (adult) (pediatric); Z79.899 Other long term (current) drug therapy; D89.89 Other specified disorders involving the immune mechanism, not elsewhere classified; R63.0 Anorexia; R53.83 Other fatigue; R53.1 Weakness; R09.02 Hypoxemia; I44.0 Atrioventricular block, first degree; M89.8X9 Other specified disorders of bone, unspecified site; M79.10 Myalgia, unspecified site; G89.29 Other chronic pain; I10 Essential (primary) hypertension; Z79.82 Long term (current) use of aspirin; Z88.8 Allergy status to other drugs, medicaments and biological substances; Z87.891 Personal history of nicotine dependence; Z90.49 Acquired absence of other specified parts of digestive tract; Z87.09 Personal history of other diseases of the respiratory system
CPT/HCPCS: 93005 ×2; 99285; 36415; 87086; 82803; 83690; 83735; 84100; 84443; 84703; 85025; 85610; 85730; 80053; 81001; 84484; 85379; 83880; 71046; 71275; 74176; 93010 ×2; 36600; 94762; G0378; J1650; J1642